=== PATIENT | female | born 1985 | race Caucasian/White ===

== ENCOUNTER 2016-05-14 22:02 | Emergency (ER) | payer MEDICAID, OTHER ==
[~2016-05-14] VITALS: Ht 162.6 cm; Wt 76.5 kg
[~2016-05-14 22:02] MED LIST: PRENAT PO
[2016-05-14 23:17] VITALS: Ht 162.6 cm; Wt 76.5 kg
[2016-05-15] MEDS ORDERED: IBUP800T25 PO (00:17)
--- NOTE | 2016-05-15 00:27 | ERD ---
ER Documentation Chief Complaint Date/Time DATE: 05/15/16 TIME: 00:23 Chief Complaint Right side Chest wall muscle pain x 3 weeks HPI Patient is a 31-year-old female who presents with chest pain that is middle and right sided that has been going on for 3 weeks. She states the pain started in her breast but now she has pain that at times radiates to her back. She denies any diaphoresis or palpitations. She denies any shortness of breath. She denies any unplanned weight loss. Denies fever. Denies cough. She states when she pushes on her chest she is able to reproduce the pain. She has not tried any medications for the pain. ROS All systems reviewed and are negative except as per history of present illness. Medications Home Meds Active Scripts Ibuprofen* (Motrin*) 800 Mg Tab, 800 MG PO Q6, #30 TAB Prov:INGRID CABRERA PA-C 05/15/16 Reported Medications Multivit/Min/Fol Ac/Iron/Pren* ( S*) 1 Tab Tab, 1 TAB PO DAILY, TAB 01/02/15 Allergies Allergies: Coded Allergies: No Known Allergy (Unverified , 07/21/14) PMhx/Soc Medical and Surgical Hx: pt denies Medical Hx, pt denies Surgical Hx History of Surgery: No Anesthesia Reaction: No Hx Neurological Disorder: No Hx Respiratory Disorders: No Hx Cardiac Disorders: No Hx Psychiatric Problems: No Hx Miscellaneous Medical Probl: No Hx Alcohol Use: No Hx Substance Use: No Hx Tobacco Use: No Smoking Status: Never smoker FmHx Family History: No diabetes Physical Exam Vitals Vital Signs Date Time Temp Pulse Resp B/P Pulse Ox O2 Delivery O2 Flow Rate FiO2 05/14/16 23:17 98.7 68 18 115/65 100 Physical Exam General: well developed, well nourished, alert, nontoxic, no distress Head: normocephalic, atraumatic Respiratory: Clear to auscaultation bilaterally, speaks in full sentences, no use of accesory muscles or labored breathing, no rales, ronchi, or wheezing Cardiovascular: RRR, No murmurs Back: no midline tenderness, no step offs or bony abnormalities, sensation to light touch in tact Extremities: moving all extremities normally, normal gait, no edema Skin: Chest wall has reproducible tenderness to palpation in the mid to right side, no bony abnormalities, sensation to light touch intact Procedures/MDM Patient has chest wall pain. She is well-appearing in no distress and her vital signs are all within normal limits. She has no cardiac risk factors. Her pain is reproducible on exam and therefore I believe this is most likely musculoskeletal. She has not tried any medications for this and therefore believe conservative treatment with anti-inflammatories as best first course of action. She is discharged with ibuprofen. I instructed her to return if she has any new or worsening symptoms. Recommended this patient follow up with her primary care doctor within 48 hours or return to the emergency room for any worsening of symptoms. However this time I do believe there is suitable for outpatient management. I answered all their questions and they agreed with the plan and were discharged home. Departure Diagnosis: Primary Impression: Chest wall pain Condition: Stable Patient Instructions: Chest Wall Strain Additional Instructions: Llame al doctor LUIS y thomas beatriz STEVENSON PARA DENTRO DE 1-2 BRADSHAW.Dgale a la secretaria que nosotros le instruimos hacer esta stevenson.Avise o llame si connolly condicin se empeora antes de la stevenson. Regresa aqui si peor o no mejor. INGRID CABRERA PA-C May 15, 2016 00:26
== END 2016-05-15 01:52 | disposition home or self-care (01) ==
LOC: FTE 22:02
DX: R07.89 Other chest pain (principal)
CPT/HCPCS: 99283